=== PATIENT | female | born 1980 | race Caucasian/White ===

== ENCOUNTER → 2024-07-08 | Outpatient (CLI) | payer OTHER, MEDICAID, SELFPAY ==
[2024-07-08 10:47] LABS: Basophils % (Auto) 1 % (0-2.5); Eosinophils # (Auto) 0.2 Thou/mm3 (0.0-0.5); Eosinophils % (Auto) 4 % (0-10); Hematocrit 40.1 % (36.0-46.0); Hemoglobin 13.5 g/dL (12.0-16.0); Immature Granulocytes % (Auto) 0 % (0-0); Immature Granulocytes Auto 0.01 Thou/mm3 (0.00-0.00); Lymphocytes # (Auto) 1.3 Thou/mm3 (1.0-4.8); Lymphocytes % (Auto) 26 % (10-50); Mean Corpuscular HGB Conc 33.7 g/dl (31.0-37.0); Mean Corpuscular Volume 92 fL (80-100); Monocytes # (Auto) 0.3 Thou/mm3 (0.0-0.8); Monocytes % (Auto) 7 % (0-12); Neutrophils # (Auto) 3.1 Thou/mm3 (1.8-7.7); Neutrophils % (Auto) 62 % (37-80); Nucleated Red Blood Cell % 0 /100 WBC (0); Platelet Count 228 Thou/mm3 (140-440); RDW Standard Deviation 43.9 fL (36.4-46.3); Red Blood Count 4.35 Miln/mm3 (4.00-5.20)
[2024-07-08 11:18] LABS: Alanine Aminotransferase 21 U/L (10-49); Albumin, Serum 4.3 gm/dL (3.5-5.0); Albumin/Globulin Ratio 2.3 (1.2-2.2); Alkaline Phosphatase 80 U/L (46-116); Anion Gap 6 (7-16); Aspartate Amino Transferase 22 U/L (0-34); BUN/Creatinine Ratio 12 Ratio (12-20); Bilirubin,Total 0.3 mg/dL (0.3-1.2); Blood Urea Nitrogen 13 mg/dL (9-23); Calcium 9.2 mg/dL (8.3-10.6); Calcium (Corrected) 9.2 mg/dL (8.5-10.1); Chloride 108 mMol/L (98-107); Creatinine (Component) 1.1 mg/dL (0.6-1.3); Globulin 1.9 gm/dL (2.3-3.5); Glucose 92 mg/dL (74-106); Osmolality,Calculated 275 (275-295); Potassium 4.2 mMol/L (3.4-5.1); Sodium 138 mMol/L (136-145); Total Protein 6.2 gm/dL (5.7-8.2); eGFR > 60 See Note
[2024-07-08 11:29] LABS: CA 15-3 6.5 U/mL (<32.4); Carcinoembryonic Antigen 0.6 ng/mL (0.0-5.0); Vitamin B12 729 pg/mL (211-911)
== END | disposition home or self-care (01) ==
PROVIDERS: PCP Family Medicine; Referring Provider Radiology Therapeutic Radiology; Visit Provider Nurse Practitioner Family
DX: E53.8 Deficiency of other specified B group vitamins (principal); M89.9 Disorder of bone, unspecified
CPT/HCPCS: 36415; 80053; 82378; 82607; 85025; 86300; 86304

== ENCOUNTER 2024-07-14 08:57 | Outpatient (RCR) | payer OTHER, MEDICAID, SELFPAY ==
--- NOTE | 2024-07-14 09:59 | CTCFLWUP_ITS ---
[facility]om[facility] [address] [place], [place] [address] FOLLOW-UP NOTE Date: 07/14/2024 MR#: [id number] Name: TRACIE ORTIZ : 1980 Dx: M89.9 Disorder of bone, unspecified Identification. Patient a 43-year-old lady with diagnosed schizophrenia since age 16 living at home with mother with complaints of low back pain with radiculopathy symptoms for over a year. MRI of L-spine with IV contrast 01/30/2024 revealed diffuse enhancement L4-L5 with osteomyelitis and n eoplasm among differentials. CT chest abdomen pelvis 02/23/2024 showed osteomyelitis discitis at L4-5 level but no pulmonary nodule s abdominal pelvic lymphadenopathy and no mediastinal lymphadenopathy or chest lesions. Bone scan 03/03/2024 showed increased uptake L4-5 area with no other pattern of disease or concern for mets. Labs has shown unremarkable CBC thus far with white count red count platelets being within normal tanner its. Tumor markers performed 07/18/2024 shows CEA see if there 15?3 to be low, with CA125 slightly e levated at 49.0. (<30.2) Had [facility] genetic result ordered 02/18/2024 which was negative. Has recently seen neurosurgery team who has recently reordered L-spine MRI 06/16/2024 revealing once again osteomyelitis L4-5 vertebral b joe with abnormal epidural enhancement consistent with epidural abscess posterior to L4 and 5. As I see patient today patient feels comfortable except for the chronic low back pain. A#1. Bone pain related to L4-5 osteomyelitis discitis being followed by neurosurgery. A#2. No surgical attempt or even biopsy indicated at this time according to patient. A#3. Patient has mildly elevated CA125 which should be followed, but there is no evidence of an acti ve cancer at this time. A#4. Recommend continued follow-up with the primary care provider and the neurosurgeon and I will se e her as needed in the future. Cc: EDDY Nichols [facility]. Electronically signed by: Obed Ware M.D. 07/14/2024 9:57 AM
== END 2024-07-31 23:59 | disposition home or self-care (01) ==
LOC: SCTC 08:57
PROVIDERS: PCP Family Medicine; Referring Provider Family Medicine; Visit Provider Radiology Therapeutic Radiology
DX: R97.1 Elevated cancer antigen 125 [CA 125] (principal); M46.46 Discitis, unspecified, lumbar region; M46.26 Osteomyelitis of vertebra, lumbar region
CPT/HCPCS: 99212; G0463

== ENCOUNTER → 2024-08-04 | Outpatient (CLI) | payer OTHER, MEDICAID, SELFPAY ==
[2024-08-04 10:17] LABS: Quantiferon-TB* See Sep Rpt
[2024-08-04 10:35] LABS: Basophils % (Auto) 1 % (0-2.5); Eosinophils # (Auto) 0.1 Thou/mm3 (0.0-0.5); Eosinophils % (Auto) 3 % (0-10); Hematocrit 41.4 % (36.0-46.0); Hemoglobin 13.9 g/dL (12.0-16.0); Immature Granulocytes % (Auto) 0 % (0-0); Immature Granulocytes Auto 0.01 Thou/mm3 (0.00-0.00); Lymphocytes # (Auto) 1.1 Thou/mm3 (1.0-4.8); Lymphocytes % (Auto) 30 % (10-50); Mean Corpuscular HGB Conc 33.6 g/dl (31.0-37.0); Mean Corpuscular Hemoglobin 30.6 pg (25.0-35.0); Mean Corpuscular Volume 91 fL (80-100); Monocytes # (Auto) 0.3 Thou/mm3 (0.0-0.8); Monocytes % (Auto) 8 % (0-12); Neutrophils # (Auto) 2.3 Thou/mm3 (1.8-7.7); Neutrophils % (Auto) 59 % (37-80); Nucleated Red Blood Cell % 0 /100 WBC (0); Platelet Count 238 Thou/mm3 (140-440); RDW Standard Deviation 42.1 fL (36.4-46.3); Red Blood Count 4.54 Miln/mm3 (4.00-5.20); White Blood Count 3.9 Thou/mm3 (3.6-11.0)
[2024-08-04 10:53] LABS: Alanine Aminotransferase 27 U/L (10-49); Albumin, Serum 4.6 gm/dL (3.5-5.0); Albumin/Globulin Ratio 2.6 (1.2-2.2); Alkaline Phosphatase 79 U/L (46-116); Anion Gap 7 (7-16); Aspartate Amino Transferase 26 U/L (0-34); BUN/Creatinine Ratio 13 Ratio (12-20); Bilirubin,Total 0.5 mg/dL (0.3-1.2); Blood Urea Nitrogen 13 mg/dL (9-23); Calcium 9.3 mg/dL (8.3-10.6); Calcium (Corrected) 9.3 mg/dL (8.5-10.1); Carbon Dioxide 27.5 mMol/L (20.0-31.0); Chloride 104 mMol/L (98-107); Globulin 1.8 gm/dL (2.3-3.5); Glucose 95 mg/dL (74-106); Osmolality,Calculated 275 (275-295); Potassium 4.6 mMol/L (3.4-5.1); Sodium 138 mMol/L (136-145); Total Protein 6.4 gm/dL (5.7-8.2); eGFR > 60 See Note
[2024-08-04 11:14] LABS: Syphilis Reactive (Nonreactive)
[2024-08-04 11:15] LABS: MHATP/TP-PA* See Sep Rpt
[2024-08-06 05:03] LABS: HIV-1 RNA, QN PCR NOT DETECTED copies/mL
[2024-08-06 06:54] LABS: HIV-1 RNA, QN PCR Log NOT DETECTED
[2024-08-06 22:06] LABS: CD19 Percentage 7 % (6-29); CD19, Absolute 79 cells/uL (110-660); CD3 Percentage 75 % (57-85); CD3, Absolute 901 cells/uL (840-3060); CD3-CD16+CD56+ % 18 % (4-25); CD3-CD16+CD56+ (Abs) 210 cells/uL (70-760); CD4 Percentage 32 % (30-61); CD4, Absolute 386 cells/uL (490-1740); CD4/CD8 Ratio 0.73 (0.86-5.00); CD8 Percentage 44 % (12-42); CD8, Absolute 529 cells/uL (180-1170)
[2024-08-09 06:52] LABS: Lymphocytes, Absolute 1205 cells/uL (850-3900)
== END | disposition home or self-care (01) ==
LOC: COPL 09:48
PROVIDERS: PCP Nurse Practitioner Family; Referring Provider Internal Medicine Infectious Disease; Visit Provider Internal Medicine Infectious Disease
DX: Z21 Asymptomatic human immunodeficiency virus [HIV] infection status (principal)
CPT/HCPCS: 36415; 80053; 85025; 86355; 86357; 86359; 86360; 86480; 86780; 87536

== ENCOUNTER 2024-08-23 15:41 | Outpatient (CLI) | payer OTHER, MEDICAID, SELFPAY | END 2024-08-23 17:01 | disposition home or self-care (01) | LOC: SMRI 15:44 | PROVIDERS: PCP Family Medicine; Referring Provider Nurse Practitioner Family; Visit Provider Nurse Practitioner Family | DX: Z53.8 Procedure and treatment not carried out for other reasons (principal) ==

== ENCOUNTER → 2024-08-26 | Outpatient (CLI) | payer OTHER, MEDICAID, SELFPAY ==
--- NOTE | 2024-08-26 14:00 | XR_ITS ---
Examination: MRI of brain without intravenous contrast. MRI brain with intravenous contrast. Date and time of exam:August 26, 2024 1432 hours INDICATIONS: Ataxia dizziness episodes 2 weeks Technique: Multiple axial and sagittal images of the brain to been obtained. Siemens high-resolution 1.52 Sandra short bore scanner utilized. Sagittal sections, T1 weighted images, TR 500, TE 14, are performed. Axial sections proton-density and T2-weighted images have been obtained. Inversion recovery axial images, TR 9260, TE 111, TR 2500. Diffusion weighted images, axial sections, TR 4800, TE 128, B value 1000. Axial sections, ADC map, TR 4800, TE 128. Axial and coronal images were also obtained post 15 cc gadolinium administered intravenously. Findings:: Enlargement of the sella turcica is not present. The optic chiasm and infundibular stalk are not remarkable. There is no localized enlargement of the medulla or juan antonio. Fourth ventricle and cerebellar tonsils appear normal in position. No subacute area of hemorrhage density is seen. Fourth ventricle is midline. Mass in the cerebellopontine angle region is not evident. 7th and 8th nerve complexes exhibit symmetry Globes are symmetrical Orbital musculature including medial lateral rectus muscles do not exhibit abnormality Increased white matter signal is evident, scattered punctate foci increased signal left parietal frontal white matter Effacement of the cortical sulcal markings is not identified. Mass effect upon the ventricular system is not identified. Diffusion-weighted images demonstrate no focus of restricted diffusion Contrast images degraded by patient motion Impression: Negative for acute hemorrhage mass effect or midline shift Negative for acute infarct Scattered punctate foci increased signal in the left frontal parietal white matter, demyelinating disease
== END | disposition home or self-care (01) ==
PROVIDERS: PCP Family Medicine; Referring Provider Nurse Practitioner Family; Visit Provider Nurse Practitioner Family
DX: R90.82 White matter disease, unspecified (principal); G37.9 Demyelinating disease of central nervous system, unspecified
CPT/HCPCS: 70553; A9579

== ENCOUNTER → 2024-10-12 | Outpatient (CLI) | payer OTHER, MEDICAID, SELFPAY ==
[2024-10-12 15:35] LABS: Basophils % (Auto) 1 % (0-2.5); Eosinophils # (Auto) 0.2 Thou/mm3 (0.0-0.5); Eosinophils % (Auto) 4 % (0-10); Hematocrit 40.5 % (36.0-46.0); Hemoglobin 13.5 g/dL (12.0-16.0); Immature Granulocytes % (Auto) 0 % (0-0); Immature Granulocytes Auto 0.02 Thou/mm3 (0.00-0.00); Lymphocytes # (Auto) 1.5 Thou/mm3 (1.0-4.8); Lymphocytes % (Auto) 28 % (10-50); Mean Corpuscular HGB Conc 33.3 g/dl (31.0-37.0); Mean Corpuscular Hemoglobin 30.2 pg (25.0-35.0); Mean Corpuscular Volume 91 fL (80-100); Monocytes # (Auto) 0.4 Thou/mm3 (0.0-0.8); Monocytes % (Auto) 7 % (0-12); Neutrophils # (Auto) 3.2 Thou/mm3 (1.8-7.7); Neutrophils % (Auto) 60 % (37-80); Nucleated Red Blood Cell % 0 /100 WBC (0); Platelet Count 220 Thou/mm3 (140-440); RDW Standard Deviation 43.1 fL (36.4-46.3); Red Blood Count 4.47 Miln/mm3 (4.00-5.20); White Blood Count 5.3 Thou/mm3 (3.6-11.0)
[2024-10-12 15:40] LABS: Glucose Estimated Average 100 mg/dL (80-131); Hemoglobin A1C 5.1 % Hgb (4.8-6.0)
[2024-10-12 15:47] LABS: Vitamin D 25 Hydroxy Total 43.2 ng/mL (7.3-40.2)
[2024-10-12 15:49] LABS: Alanine Aminotransferase 33 U/L (10-49); Albumin, Serum 4.1 gm/dL (3.5-5.0); Albumin/Globulin Ratio 2.3 (1.2-2.2); Alkaline Phosphatase 74 U/L (46-116); Anion Gap 5 (7-16); BUN/Creatinine Ratio 15 Ratio (12-20); Bilirubin,Total 0.2 mg/dL (0.3-1.2); Blood Urea Nitrogen 15 mg/dL (9-23); Calcium 9.3 mg/dL (8.3-10.6); Calcium (Corrected) 9.3 mg/dL (8.5-10.1); Carbon Dioxide 25.7 mMol/L (20.0-31.0); Cardiac Risk Estimate 2.4 RATIO (3.7-5.6); Chloride 109 mMol/L (98-107); Cholesterol 118 mg/dL (132-200); Free T4 (Free Thyroxine) 0.99 ng/dL (0.89-1.76); Globulin 1.8 gm/dL (2.3-3.5); Glucose 105 mg/dL (74-106); HDL Cholesterol 49 mg/dL (40-60); LDL Cholesterol,Calculated 44 mg/dL (0-130); Osmolality,Calculated 280 (275-295); Potassium 3.9 mMol/L (3.4-5.1); Sodium 140 mMol/L (136-145); Thyroid Stimulating Hormone 3.53 uIU/mL (0.55-4.78); Total Protein 5.9 gm/dL (5.7-8.2); Triglycerides 126 mg/dL (30-150); eGFR > 60 See Note
[2024-10-12 16:11] LABS: Aspartate Amino Transferase 24 U/L (0-34)
[2024-10-19 06:54] LABS: Direct LDL* 61 mg/dL (<100)
== END | disposition home or self-care (01) ==
LOC: COPL 14:13
PROVIDERS: PCP Family Medicine; Referring Provider Psychiatry & Neurology Child & Adolescent Psychiatry; Visit Provider Psychiatry & Neurology Child & Adolescent Psychiatry
DX: Z15.81 Genetic susceptibility to multiple endocrine neoplasia [MEN] (principal); Z13.29 Encounter for screening for other suspected endocrine disorder; Z13.228 Encounter for screening for other metabolic disorders; Z79.899 Other long term (current) drug therapy
CPT/HCPCS: 36415; 80053; 80061; 82306; 83036; 83721; 84439; 84443; 85025

== ENCOUNTER → 2024-11-02 | Outpatient (CLI) | payer OTHER, MEDICAID, SELFPAY ==
--- NOTE | 2024-11-02 10:00 | XR_ITS ---
Examination: MRI lumbar spine, without intravenous contrast. MRI lumbar spine , with intravenous contrast. Exam date and time: November 03, 1999 2510 0 1:00 AM Comparison June 16, 2024 Technique: Multiple axial, sagittal and coronal images of the lumbar spine have been obtained with the Siemens high-resolution 1.5 Sandra MRI scanner. Images obtained included T2 weighted fat suppressed sagittal sections, TR 3500, TE 46, T2 weighted coronal fat suppressed images, TR 3050, TE 84, T2-weighted transverse fat suppressed images, TR 30-60, TE 63, proton density transverse images, TR 4720, TE 46, and T1 weighted coronal images, TR 560, TE 13. Axial, sagittal and coronal images are obtained post intravenous injection 60 cc gadolinium. Findings: Abnormal signal contiguous margins L4-L5 with marked intervening disc narrowing Postcontrast images are degraded by patient motion, abnormal enhancement involving the inferior endplate L4 superior endplate L5 Mild enhancement in the intervening disc All the images are degraded by continual patient motion IMPRESSION: Osteomyelitis discitis L4-L5
== END | disposition home or self-care (01) ==
LOC: SMRI 09:35
PROVIDERS: PCP Nurse Practitioner Family; Referring Provider Specialist; Visit Provider Specialist
DX: M46.26 Osteomyelitis of vertebra, lumbar region (principal)
CPT/HCPCS: 72158; A9579

== ENCOUNTER → 2025-08-30 | Outpatient (CLI) | payer OTHER, MEDICAID, SELFPAY ==
--- NOTE | 2025-08-30 11:30 | XR_ITS ---
Examination: Abdomen sonogram, Limited Date and time of exam: August 30, 2025, 1106 hours INDICATIONS: Elevated liver function tests on laboratory examination this week, abdominal pain this week Technique: Real-time navarro scale transabdominal sonographic images of the upper abdomen obtained. Findings: Normal gallbladder Normal common bile duct 0.2 cm Pancreatic head 1.8 cm Liver 13.5 cm fatty infiltration no focal liver lesions Normal hepatopetal portal venous flow Patent IVC IMPRESSION: Normal gallbladder Normal common bile duct
== END | disposition home or self-care (01) ==
PROVIDERS: PCP Nurse Practitioner Family; Referring Provider Nurse Practitioner Family; Visit Provider Nurse Practitioner Family
DX: K76.89 Other specified diseases of liver (principal)
CPT/HCPCS: 76705